=== PATIENT | female | born 1950 | race Caucasian/White ===

== ENCOUNTER → 2021-05-18 | Outpatient (CLI) | payer OTHER | END | disposition home or self-care (01) | LOC: LAB 17:56 → LAB SHORT 17:56 | DX: L08.9 Local infection of the skin and subcutaneous tissue, unspecified (principal) | CPT/HCPCS: 87070; 87205 ==

== ENCOUNTER → 2021-12-13 | Outpatient (CLI) | payer MEDICARE ==
[2021-12-13 14:59] LABS: Source, Urine Clean Catch
[2021-12-13 15:49] LABS: Bilirubin, Urine Neg (Neg); Blood, Urine 1+ (Neg); Glucose Qualitative, Urine Neg (Neg); Ketones, Urine Neg (Neg); Leukocyte Esterase, Urine 3+ (Neg); Nitrite, Urine Neg (Neg); Protein, Urine Neg (Neg); Specific Gravity, Urine 1.005 (1.003-1.022); Urobilinogen, Urine NORM (Normal)
[2021-12-13 16:10] LABS: Appearance, Urine Hazy (Clear); Color, Urine Yellow (P-Yellow)
[2021-12-13 16:11] LABS: White Blood Cells, Urine 25-50 /hpf (0-5)
[2021-12-13 16:13] LABS: Red Blood Cells, Urine 0-2 /hpf (0-2)
[2021-12-13 16:14] LABS: Bacteria Many /hpf; Squamous Epithelial Cells Few /hpf (Few)
== END ==
LOC: LAB SHORT 14:53
PROVIDERS: Student in an Organized Health Care Education/Training Program
DX: N17.9 Acute kidney failure, unspecified (principal)
CPT/HCPCS: 81001

== ENCOUNTER 2022-09-13 05:52 | Inpatient (IN) | payer MEDICARE ==
[~2022-09-13] VITALS: Ht 170.2 cm; Wt 113.2 kg
[2022-09-13 06:24] LABS: BASOPHILS ABSOLUTE AUTO 0.05 K/mm3 (0.00-0.23); BASOPHILS PERCENT AUTO 1 % (0-2); EOSINOPHILS ABSOLUTE AUTO 0.07 K/mm3 (0.00-0.68); EOSINOPHILS PERCENT AUTO 1 % (0-6); Hematocrit 33.6 % (33.0-51.0); Hemoglobin 11.7 g/dL (11.5-16.0); IMMATURE GRAN ABSOLUTE AUTO 0.02 K/mm3 (0.00-0.10); IMMATURE GRAN PERCENT AUTO 0 % (0-1); LYMPHOCYTES ABSOLUTE AUTO 1.17 K/mm3 (0.84-5.20); LYMPHOCYTES PERCENT AUTO 20 % (21-46); MONOCYTES ABSOLUTE AUTO 0.44 K/mm3 (0.16-1.47); MONOCYTES PERCENT AUTO 8 % (4-13); Mean Corpuscular HGB 33.1 pg (26.0-34.0); Mean Corpuscular HGB Conc 34.8 g/dL (31.5-36.5); Mean Corpuscular Volume 95 fL (80-100); Mean Platelet Volume 10.6 fL (9.1-12.4); NEUTROPHILS ABSOLUTE AUTO 4.01 K/mm3 (1.96-9.15); NEUTROPHILS PERCENT AUTO 70 % (41-73); Platelet Count 142 K/mm3 (150-400); RDW Coefficient Variation 13.2 % (11.7-14.2); RDW Standard Deviation 45.6 fL (35.1-46.3); Red Blood Cell Count 3.54 M/mm3 (3.80-5.20); White Blood Cell Count 5.76 K/mm3 (4.00-11.30)
[2022-09-13 06:32] LABS: Albumin, Blood 3.7 g/dL (3.4-5.0); Albumin/Globulin Ratio 1.1 (0.8-1.8); Bilirubin, Total 0.8 mg/dL (0.1-1.0); Bun/Creatinine Ratio 13.6 (12.0-20.0); Calcium, Blood 8.8 mg/dL (8.5-10.1); Creatinine, Blood 0.96 mg/dL (0.40-1.00); Globulin, Blood 3.3 g/dL (2.2-4.0); Potassium, Blood 3.8 mmol/L (3.5-5.5)
[2022-09-13 07:34] LABS: Influenza B, PCR NEGATIVE (NEGATIVE); Resp Syncytial Virus, PCR NEGATIVE (NEGATIVE); SARS-Cov-2 (COVID-19) PCR, MMC NEGATIVE (NEGATIVE)
[2022-09-13 07:41] LABS: Influenza A, PCR POSITIVE (NEGATIVE)
[2022-09-13 08:57] LABS: PCO2 Arterial 37.8 mmHg (35-45); PO2 Arterial 75.5 mmHg (80-100); pH Blood Arterial 7.44 (7.35-7.45)
[2022-09-13] MEDS ORDERED: NEURONTIN300 MG PO ×2 (09:25)
[2022-09-13] MEDS ORDERED: METF500 PO (09:25)
[2022-09-13] MEDS ORDERED: ROPI.25 PO (09:26)
[2022-09-13] MEDS ORDERED: AMIT75 PO (09:26)
[2022-09-13] MEDS ORDERED: TIZA4 PO (09:26)
[2022-09-13] MEDS ORDERED: FUROSEMIDE20 MG PO (09:26)
[2022-09-13] MEDS ORDERED: LOSA50 PO (09:27)
[2022-09-13] MEDS ORDERED: KLOR-CON M1010 MEQ PO (09:27)
[2022-09-13] MEDS ORDERED: ATOR10 PO (09:28)
[2022-09-13] MEDS ORDERED: INCRUSE ELPT62.5MCG (09:28)
[2022-09-13] MEDS ORDERED: Cranberry400 MG PO (09:30)
[2022-09-13] MEDS ORDERED: INSULANI SC (09:30)
[2022-09-13] MEDS ORDERED: IRON18 MG PO (09:30)
[2022-09-13] MEDS ORDERED: Aspir 8181 MG PO (09:31)
[2022-09-13] MEDS ORDERED: Vitamin B Comple1 EA PO (09:31)
[2022-09-13] MEDS ORDERED: C COMPLEX1000 M1 PO (09:31)
[2022-09-13] MEDS ORDERED: CAL MAG PO (09:32)
[2022-09-13] MEDS ORDERED: EUTHYROX50 MC1 PO (14:08)
--- NOTE | 2022-09-13 17:58 | NUR ---
PCU ARRIVAL / END OF SHIFT NOTE PT BROUGHT TO U-04 BY DYLAN FROM ER @ APPROX 1400. PT A&O X4. PT REPORTING FEELING "DIZZY" UPON SITTING UP, BUT SYMPTOMS SUBSIDED. PT THEN ABLE TO STAND & AMBULATE FROM [facility] TO PCU BED W/ 1 PERSON SBA. PT ON 1L NC UPON ARRIVAL. VSS. MONITOR SHOWING ST, HR 100-110s. PT THEN W/ PRODUCTIVE COUGH, PRODUCING THICK PRICE SPUTUM. SPO2 DECREASE TO LOW 80s. NC INCREASED UP TO 5L NC. PT ANXIOUS, STATING "I CAN'T BREATHE. I CAN'T DO THIS. SOMEONE JUST SHOOT ME." MONITOR SHOWING ST, HR UP TO 130. RT TO RM FOR APPLICATION OF AIRVO & BREATHING TX. PT NOW ON AIRVO @ 40L, 40% FIO2. FAN PLACED ON PT D/T PT REPORT OF "BURNING UP" THOUGH ORAL TEMP WNL. MD CISNEROS NOTIFIED W/ NEW ORDERS FOR PRN COUGH MEDICINE & XANAX, SEE ORDERS. MEDS GIVEN, SEE EMAR. PT NOW CALM. COUGHING SUBSIDED. HR BACK TO 100-110s. PT CBG 414 WITHOUT EATING. MD CISNEROS NOTIFIED W/ PT GIVEN INSULIN PER EMAR. REPEAT CBG CHECK 396, MD CISNEROS NOTIFIED W/ ORDER TO CONTINUE W/ MEDIUM SLIDING SCALE COVERAGE, NO NEW ORDER AT THIS TIME.
[2022-09-14 04:32] LABS: Hemoglobin 10.9 g/dL (11.5-16.0); Mean Corpuscular HGB 32.8 pg (26.0-34.0); Mean Corpuscular HGB Conc 34.1 g/dL (31.5-36.5); Mean Corpuscular Volume 96 fL (80-100); Mean Platelet Volume 10.8 fL (9.1-12.4); Platelet Count 128 K/mm3 (150-400); RDW Coefficient Variation 13.5 % (11.7-14.2); RDW Standard Deviation 47.5 fL (35.1-46.3); Red Blood Cell Count 3.32 M/mm3 (3.80-5.20); White Blood Cell Count 6.84 K/mm3 (4.00-11.30)
[2022-09-14 05:50] LABS: Bun/Creatinine Ratio 20.7 (12.0-20.0); Calcium, Blood 8.4 mg/dL (8.5-10.1); Creatinine, Blood 0.87 mg/dL (0.40-1.00); Potassium, Blood 4.2 mmol/L (3.5-5.5)
--- NOTE | 2022-09-14 18:37 | NUR ---
END OF SHIFT NOTE PT A&O X4. VSS. MONITOR SHOWING SR-ST, HR 90s-110s. SPO2 > 92% ON AIRVO: 40L, 40% FIO2. PT DESATTING TO LOW 80s WHEN COUGHING, REQUIRING TEMPORARY INCREASE IN FIO2 UNTIL RECOVERED. PT W/ THICK PRICE SPUTUM PRODUCTION. PT SBA TO BSC.
--- NOTE | 2022-09-15 04:18 | NUR ---
SHIFT SUMMARY PT A&Ox4, CALLS AND COMMUNICATES NEEDS APPROPRIATELY. BP STABLE, ST 100-110's, DENIES CP/PRESSURE. SpO2> 92% 40L/35% FiO2, DENIES SOB. PT SBA TO BSC FOR VOIDING, CONTINENT OF URINE AND BOWEL, PT DID NOT HAVE BM THIS SHIFT. PT ABLE TO REST MORE COMFORTABLY AND HAD LESS COUGHING FITS THIS SHIFT. NO ACUTE EVENTS, WILL REPORT TO ONCOMING RN.
[2022-09-15 04:55] LABS: PCO2 Arterial 44.7 mmHg (35-45); PO2 Arterial 88.9 mmHg (80-100); pH Blood Arterial 7.35 (7.35-7.45)
[2022-09-15 05:52] LABS: Albumin, Blood 3.3 g/dL (3.4-5.0); Anion Gap 8 mmol/L (6-16); Blood Urea Nitrogen 24 mg/dL (8-24); Bun/Creatinine Ratio 26.8 (12.0-20.0); CO2, Blood 24 mmol/L (21-32); Calcium, Blood 8.5 mg/dL (8.5-10.1); Chloride, Blood 98 mmol/L (98-108); Glomerular Filtration Rate 69 (60-); Glucose, Blood 371 mg/dL (70-99); Phosphorus, Blood 2.3 mg/dL (2.5-4.9); Potassium, Blood 4.8 mmol/L (3.5-5.5); Sodium, Blood 130 mmol/L (136-145)
[2022-09-15 12:13] LABS: Glucose, Blood 572 mg/dL (70-99)
--- NOTE | 2022-09-15 18:24 | NUR ---
SHIFT SUMMARY PT A/OX 4 AND COOPERATIVE OF CARE. PT SATS DROP TO THE HIGH 70-80'S WITH EXERTION BUT RETURN QUICKLY TO 90'S ON 2L NC. PT REPORTS SOB ONLY WITH EXERTION, NO SOB WHEN AT REST. OTHER VSS THROUGHOUT SHIFT. PT WAS UP TO RECLINER AND AMBULATED TO TOILET MULTIPLE TIME DURING SHIFT, TOLERATED FAIR, SBA. NO REPORT OF CHEST PAIN/PRESSURE THROUGHOUT SHIFT. PT ANXIOUS OF GETTING HOME FOR [facility]. PT EDUCATED ON THE IMPORTANCE OF GETTING HOME WHEN SHE SAFE AND STABLE, PT AGREES.
--- NOTE | 2022-09-16 04:41 | NUR ---
SHIFT SUMMARY PT A&Ox4, CALLS AND COMMUNICATES NEEDS APPROPRIATELY. VSS, BP STABLE, PT NOT ON TELE. SpO2> 92% 2L VIA NC, REPORTS SOB WITH ACTIVITY. DENIES CP/PRESSURE. PT REMAINED MEDICAL, NO TELE STATUS. PT SBA TO BATHROOM WITH NO ASSISTIVE DEVISES, STEADY GAIT. CONTINENT OF URINE AND BOWEL. PT STILL EXPERIENCING FREQUENT, NONPRODUCTIVE COUGH. NO ACUTE EVENTS THIS SHIFT. WILL REPORT TO ONCOMING RN.
[2022-09-16 13:02] LABS: Free Thyroxine 1.53 ng/dL (0.70-1.60); Percent Saturation 5.7 % (15.0-50.0); Thyroid Stimulating Hormone 0.369 uIU/mL (0.360-4.800)
--- NOTE | 2022-09-16 18:04 | NUR ---
SHIFT SUMMARY PT A/OX4 AND COOPERATIVE OF CARE. PT O2 SATS MAINTIANED IN 90'S ON 2-4L NC, ATTEMPETED TO TITRATE TO 1L, PT SATS STAYED 89-90%. RETURNED O2 TO 2-4 L NC. PT TEMP WAS UP TO 100.4, TYLENOL GIVEN PER EMAR, TEMP WNL. OTHER VSS THROUGHOUT SHIFT. NO REPORT OF CHEST PAIN/PRESSURE THROUGHOUT SHIFT. NO REPORT OF SOB/DYSPNEA THROUGHOUT SHIFT. PT UP TO TOILET FOR BM TODAY, TOLERATED WELL, SBA. BLOOD SUGARS IN THE 200' FOR MOST OF SHIFT, EVENING BLOOD SUGAR 407, TREATED PER EMAR SLIDING SCALE. MESSAGE LEFT FOR DR FOR RECENT BLOOD SUGAR.
[2022-09-16 21:18] LABS: Glucose, Blood 566 mg/dL (70-99)
--- NOTE | 2022-09-16 22:04 | NUR ---
UPDATE PT'S CBG THIS PM CAME BACK TO >500 WHEN TAKEN WITH GLUCOMETER. STAT CBG VIA BLOOD DRAW WAS PERFORMED WITH RESULTS INDICATING CBG WAS 566. DR. CAMILO WELL METAL WINDOW FRAME MAKER NAMITA WERE NOTIFIED OF CRITICAL LAB RESULT. MD ORDERED AN ADDITIONAL DOSE OF LISPRO WELL THE ADMIN. OF HER SCEDULED DOSES OF INSULIN. PT WAS MEDICATED ORDERED PER EMAR. PT STATED SHE WAS NOT WEAK, DIZZY, OR HAD INCREASED NEED OF THIRST/HUNGER/NEED TO VOID. NO CHANGE IN MENTATION NOTED AT THIS TIME. PT GIVEN WATER AND NO NEW ORDERS AT THIS TIME.
--- NOTE | 2022-09-17 04:14 | NUR ---
PT PCU TRANSFER TO 336. A&OX 4. VSS. STANDBY ASSIST TO BATHROOM. ON 2L NC SATTING ABOVE 90%. C/O HEADACHE AND FREQUENT COUGHING. GIVEN PRN TYLENOL AND TESSALON PERLES. PLEASANT AND COOPERATIVE WITH CARE.
[2022-09-17 05:34] LABS: BASOPHILS ABSOLUTE AUTO 0.01 K/mm3 (0.00-0.23); BASOPHILS PERCENT AUTO 0 % (0-2); EOSINOPHILS ABSOLUTE AUTO 0.08 K/mm3 (0.00-0.68); EOSINOPHILS PERCENT AUTO 1 % (0-6); Hematocrit 30.5 % (33.0-51.0); Hemoglobin 10.6 g/dL (11.5-16.0); IMMATURE GRAN ABSOLUTE AUTO 0.06 K/mm3 (0.00-0.10); IMMATURE GRAN PERCENT AUTO 1 % (0-1); LYMPHOCYTES ABSOLUTE AUTO 1.28 K/mm3 (0.84-5.20); LYMPHOCYTES PERCENT AUTO 16 % (21-46); MONOCYTES ABSOLUTE AUTO 0.55 K/mm3 (0.16-1.47); MONOCYTES PERCENT AUTO 7 % (4-13); Mean Corpuscular HGB 32.4 pg (26.0-34.0); Mean Corpuscular HGB Conc 34.8 g/dL (31.5-36.5); Mean Corpuscular Volume 93 fL (80-100); Mean Platelet Volume 10.4 fL (9.1-12.4); NEUTROPHILS ABSOLUTE AUTO 6.23 K/mm3 (1.96-9.15); NEUTROPHILS PERCENT AUTO 76 % (41-73); Platelet Count 125 K/mm3 (150-400); RDW Coefficient Variation 13.2 % (11.7-14.2); RDW Standard Deviation 45.5 fL (35.1-46.3); Red Blood Cell Count 3.27 M/mm3 (3.80-5.20); White Blood Cell Count 8.21 K/mm3 (4.00-11.30)
[2022-09-17 06:14] LABS: Albumin, Blood 2.9 g/dL (3.4-5.0); Albumin/Globulin Ratio 0.8 (0.8-1.8); Bilirubin, Total 1.2 mg/dL (0.1-1.0); Calcium, Blood 8.7 mg/dL (8.5-10.1); Creatinine, Blood 0.96 mg/dL (0.40-1.00); Globulin, Blood 3.7 g/dL (2.2-4.0); Potassium, Blood 3.5 mmol/L (3.5-5.5); Total Protein, Blood 6.6 g/dL (6.4-8.2)
--- NOTE | 2022-09-17 12:17 | NUR ---
DR. BAHENA, WHEN ROUNDING, DISCUSSED WITH NURSE PLANS FOR DISCHARGE. PT IS VERY STRONGLY DESIRING TO GO HOME. DR. BAHENA WITH ORDERS FOR A HOME O2 EVAL, PT WILL NEED OXYGEN AT HOME SHE CURRENTLY REQUIRES 3LPM VIA NC TO MAINTAIN HER SATS. BASELINE IS ROOM AIR. SHE WILL NEED OUT PATIENT IRON TRANSFUSIONS.
[2022-09-17] MEDS ORDERED: HUMALOG KW100 UNIT/1 SC (15:26)
[2022-09-17] MEDS ORDERED: Tessalon200 MG PO (15:38)
--- NOTE | 2022-09-17 17:14 | NUR ---
LATE ENTRY SHIFT SUMMARY PT HAD DISCHARGE DISCUSSION WITH DR. BAHENA, DISCUSSED STOPPING TAKING METFORMIN, INCREASING LANTUS DOSING, AND CONTINUING WITH HOME NEB AND OXYGEN TREATMENTS. HOME O2 EVAL PERFORMED BY RT, INDICATING REQUIREMENT OF 2-3LPM VIA NC TO MAINTAIN OXYGEN SATS. THIS RN FAXED MEDICATION RX'S NEEDED TO [facility]. 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 PREPARING FOR DISCHARGE.
--- NOTE | 2022-09-17 17:16 | NUR ---
DISCHARGE NOTE PT'S IV WAS REMOVED AT 1530. PT WAS CONNECTED TO OXYGEN THAT WAS DELIVERED BY [facility]. RN REVIEWED DISCHARGE TEACHING AND MEDICATIONS WITH PT. PT'S STATED HE HAD PICKED UP THE MEDICATIONS FROM [facility]. GAVE PT DISCHARGE EDUCATION INCLUDING IRON DEFICIENCY AND HIGH SLIDING SCALE. PT WILL CALL [facility] TO SCHEDULE OUTPT IRON TRANSFUSIONS. PT WAS WHEELED, VIA WHEELCHAIR PROPELLED BY MUSEUM REGISTRAR, WITH ALL BELONGINGS TO PRIVATE VEHICLE DRIVEN BY HER .
== END 2022-09-17 16:24 | disposition home or self-care (01) | DRG 193 ==
LOC: ER 05:52 → ERHOLD 08:13 → ER 08:13 → MEDS 08:13 → PCU 08:13 → MEDS 09-17 02:10
PROVIDERS: Emergency Medicine; Internal Medicine; ADMIT Internal Medicine
DX: J10.1 Influenza due to other identified influenza virus with other respiratory manifestations (principal); J96.01 Acute respiratory failure with hypoxia; E87.20 Acidosis, unspecified; Z68.41 Body mass index [BMI] 40.0-44.9, adult; E87.1 Hypo-osmolality and hyponatremia; J44.1 Chronic obstructive pulmonary disease with (acute) exacerbation; Z20.822 Contact with and (suspected) exposure to COVID-19; E03.9 Hypothyroidism, unspecified; J40 Bronchitis, not specified as acute or chronic; E66.9 Obesity, unspecified; G25.81 Restless legs syndrome; E11.40 Type 2 diabetes mellitus with diabetic neuropathy, unspecified; E78.5 Hyperlipidemia, unspecified; G47.00 Insomnia, unspecified; G89.29 Other chronic pain; E86.0 Dehydration; E11.65 Type 2 diabetes mellitus with hyperglycemia; T38.0X5A Adverse effect of glucocorticoids and synthetic analogues, initial encounter; F41.9 Anxiety disorder, unspecified; D50.9 Iron deficiency anemia, unspecified; M54.9 Dorsalgia, unspecified; Z90.49 Acquired absence of other specified parts of digestive tract; Z90.710 Acquired absence of both cervix and uterus; Z90.722 Acquired absence of ovaries, bilateral; Z79.4 Long term (current) use of insulin; Z79.82 Long term (current) use of aspirin; Z79.899 Other long term (current) drug therapy
CPT/HCPCS: 0241U; 36415; 36600; 71045; 80048; 80053; 80069; 82728; 82803; 82947; 83540; 83550; 83605; 83880; 84145; 84439; 84443; 84484; 85025; 85027; 87040; 93005; 93010; 94640; 94664; 94760; 94761; 94762; 96365; 96375; 99285-25; A9270; J1650; J1815; J2405; J2916; J2920; J2930; J3475; J7030; J7050; J7512

== ENCOUNTER 2022-09-19 11:49 | Day surgery (SDC) | payer MEDICARE ==
[~2022-09-19 11:49] MED LIST: AMIT75 PO; ATOR10 PO; Aspir 8181 MG PO; C COMPLEX1000 M1 PO; CAL MAG PO; Cranberry400 MG PO; EUTHYROX50 MC1 PO; FUROSEMIDE20 MG PO; HUMALOG KW100 UNIT/1 SC; INCRUSE ELPT62.5MCG; INSULANI SC; IRON18 MG PO; KLOR-CON M1010 MEQ PO; LOSA50 PO; METF500 PO; NEURONTIN300 MG PO; ROPI.25 PO; TIZA4 PO; Tessalon200 MG PO; Vitamin B Comple1 EA PO
== END 2022-09-19 15:22 | disposition home or self-care (01) ==
LOC: ATC 11:49
DX: D50.9 Iron deficiency anemia, unspecified (principal); E11.42 Type 2 diabetes mellitus with diabetic polyneuropathy; J44.9 Chronic obstructive pulmonary disease, unspecified; E78.5 Hyperlipidemia, unspecified; I10 Essential (primary) hypertension; J96.01 Acute respiratory failure with hypoxia
CPT/HCPCS: J2916

== ENCOUNTER 2022-09-21 00:51 | Day surgery (SDC) | payer MEDICARE | END 2022-09-21 15:20 | disposition home or self-care (01) | LOC: ATC 00:51 | DX: D50.0 Iron deficiency anemia secondary to blood loss (chronic) (principal); I10 Essential (primary) hypertension; E11.42 Type 2 diabetes mellitus with diabetic polyneuropathy; E78.5 Hyperlipidemia, unspecified; J96.01 Acute respiratory failure with hypoxia; J44.1 Chronic obstructive pulmonary disease with (acute) exacerbation | CPT/HCPCS: 96365; J2916 ==

== ENCOUNTER 2022-09-22 01:18 | Day surgery (SDC) | payer MEDICARE | END 2022-09-22 14:56 | disposition home or self-care (01) | LOC: ATC 01:18 | DX: D50.9 Iron deficiency anemia, unspecified (principal); E11.9 Type 2 diabetes mellitus without complications; I10 Essential (primary) hypertension; J44.9 Chronic obstructive pulmonary disease, unspecified | CPT/HCPCS: 96365; J2916 ==

== ENCOUNTER 2022-09-23 00:11 | Day surgery (SDC) | payer MEDICARE | END 2022-09-23 14:56 | disposition home or self-care (01) | LOC: ATC 00:11 | DX: D50.9 Iron deficiency anemia, unspecified (principal); J44.9 Chronic obstructive pulmonary disease, unspecified; E11.42 Type 2 diabetes mellitus with diabetic polyneuropathy; I10 Essential (primary) hypertension | CPT/HCPCS: J2916 ==

== ENCOUNTER 2022-12-13 15:40 | Emergency (ER) | payer OTHER ==
[~2022-12-13] VITALS: Ht 170.2 cm; Wt 110.7 kg
[2022-12-13 16:04] LABS: BASOPHILS ABSOLUTE AUTO 0.02 K/mm3 (0.00-0.23); BASOPHILS PERCENT AUTO 0 % (0-2); EOSINOPHILS PERCENT AUTO 0 % (0-6); Hematocrit 31.5 % (33.0-51.0); Hemoglobin 10.6 g/dL (11.5-16.0); IMMATURE GRAN ABSOLUTE AUTO 0.06 K/mm3 (0.00-0.10); IMMATURE GRAN PERCENT AUTO 1 % (0-1); LYMPHOCYTES ABSOLUTE AUTO 0.27 K/mm3 (0.84-5.20); LYMPHOCYTES PERCENT AUTO 3 % (21-46); MONOCYTES ABSOLUTE AUTO 0.38 K/mm3 (0.16-1.47); MONOCYTES PERCENT AUTO 5 % (4-13); Mean Corpuscular HGB 31.5 pg (26.0-34.0); Mean Corpuscular HGB Conc 33.7 g/dL (31.5-36.5); Mean Corpuscular Volume 94 fL (80-100); Mean Platelet Volume 11.7 fL (9.1-12.4); NEUTROPHILS ABSOLUTE AUTO 7.34 K/mm3 (1.96-9.15); NEUTROPHILS PERCENT AUTO 91 % (41-73); Platelet Count 135 K/mm3 (150-400); RDW Coefficient Variation 13.5 % (11.7-14.2); RDW Standard Deviation 46.5 fL (35.1-46.3); Red Blood Cell Count 3.37 M/mm3 (3.80-5.20); White Blood Cell Count 8.07 K/mm3 (4.00-11.30)
[2022-12-13 16:17] LABS: Albumin, Blood 3.3 g/dL (3.4-5.0); Albumin/Globulin Ratio 0.7 (0.8-1.8); Bun/Creatinine Ratio 26.9 (12.0-20.0); Calcium, Blood 9.2 mg/dL (8.5-10.1); Creatinine, Blood 1.34 mg/dL (0.40-1.00); Globulin, Blood 4.5 g/dL (2.2-4.0); Potassium, Blood 4.5 mmol/L (3.5-5.5); Total Protein, Blood 7.8 g/dL (6.4-8.2)
[2022-12-13 16:54] LABS: Source, Urine Clean Catch
[2022-12-13 17:00] LABS: Appearance, Urine Clear (Clear); Bilirubin, Urine Neg (Neg); Blood, Urine Neg (Neg); Color, Urine Yellow (P-Yellow); Glucose Qualitative, Urine 4+ (Neg); Ketones, Urine Neg (Neg); Leukocyte Esterase, Urine Neg (Neg); Nitrite, Urine Neg (Neg); Protein, Urine Neg (Neg); Specific Gravity, Urine 1.015 (1.003-1.022); Urobilinogen, Urine NORM (Normal)
[2022-12-13 17:04] LABS: Base Excess Venous -3.4 mmol/L; Bicarbonate Venous 21.9 mmol/L (24.0-30.0); pH Blood Venous 7.38 (7.34-7.37)
== END 2022-12-13 20:54 | disposition home or self-care (01) ==
LOC: ER 15:40
PROVIDERS: Emergency Medicine
DX: E11.65 Type 2 diabetes mellitus with hyperglycemia (principal); J44.9 Chronic obstructive pulmonary disease, unspecified; I10 Essential (primary) hypertension; E78.5 Hyperlipidemia, unspecified; Z79.890 Hormone replacement therapy; Z79.899 Other long term (current) drug therapy; Z79.4 Long term (current) use of insulin
CPT/HCPCS: 36415; 71045; 80053; 81003; 82803; 82947; 85025; 96360; 99284-25; J1815; J7030

== ENCOUNTER 2023-02-14 09:36 | Day surgery (SDC) | payer OTHER ==
[~2023-02-14 09:36] MED LIST changes: +ALBU90OI INH; +TRELEGY ELLIPT1 EACH BC
[2023-02-14 10:05] VITALS: BP 136/70
--- NOTE | 2023-02-14 10:15 | NUR ---
PT REPORTS COLON RESULTS IS GREENISH BUT NO SOLIDS. 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 PT GIVEN A TAP WATER ENEMA WITH PT ABOUT TO RETAIN 400ML FLUID. HELD FOR APPROX 5 MINUTES, RESULTS OF LIGHT GREENISH CLEAR WITH FLECKS. DR. QUILES NOTIFIED. PLAN TO PROCEED WITH PROCEDURE.
[2023-02-14] MEDS ORDERED: TIZA4 PO (10:22)
--- NOTE | 2023-02-14 10:50 | NUR ---
02/14/23 Cheryl Demarco HISTORY, CHART, MEDICATIONS AND ALLERGIES REVIEWED BEFORE START OF PROCEDURE. PATIENT CONFIRMS NPO STATUS AND AGREES WITH SCHEDULED PROCEDURE. 3-LEAD EKG REVIEWED WITH PHYSICIAN PRIOR TO START OF PROCEDURE. MONITOR INTACT WITH CONTINUOUS PULSE OXIMETRY,CAPNOGRAPHY, 3-LEAD EKG, INTERMITTENT BP. SUPPLEMENTAL O2 TO BE TITRATED THROUGHOUT PROCEDURE TO MAINTAIN O2 SATURATION ABOVE 90%. PATIENT DETERMINED TO BE ASA APPROPRIATE FOR PROPOFOL SEDATION PRIOR TO START OF PROCEDURE BY DR. QUILES.
[2023-02-14 11:04] VITALS: BP 109/61
--- NOTE | 2023-02-14 11:06 | NUR ---
REPORT RECEIVED FROM DANIEL RUFF RN. VSS. PT ABLE TO REPOSITION SELF IN BED. PT REQUESTING PO FLUIDS AND TOLERATING THEM WELL. PT DENIES PAIN OR DISCOMFORT.
[2023-02-14 11:15] VITALS: BP 127/70
--- NOTE | 2023-02-14 11:26 | NUR ---
Patient up to Ambulate independently. Gait steady. VSS. Discharge instructions reviewed with patient. Patient verbalizes understanding. Copy given to patient to take home. Patient States Post-Procedure ride home has been arranged. Discharged via wheelchair to private car for ride home. PT BELONGINGS RETURNED TO PT.
== END 2023-02-14 22:39 | disposition home or self-care (01) ==
LOC: ORSCMMR 09:36 → ORD 10:30 → ORSCMMR 22:39
PROVIDERS: Internal Medicine Gastroenterology
PROC: 0DBN8ZX Excision of Sigmoid Colon, Via Natural or Artificial Opening Endoscopic, Diagnostic (ICD-10-PCS; principal; 2023-02-14 10:30)
DX: K62.5 Hemorrhage of anus and rectum (principal); D64.9 Anemia, unspecified; D12.5 Benign neoplasm of sigmoid colon; J44.9 Chronic obstructive pulmonary disease, unspecified; E11.40 Type 2 diabetes mellitus with diabetic neuropathy, unspecified; N28.9 Disorder of kidney and ureter, unspecified; I10 Essential (primary) hypertension; E78.00 Pure hypercholesterolemia, unspecified; Z87.891 Personal history of nicotine dependence; Z79.4 Long term (current) use of insulin; Z79.84 Long term (current) use of oral hypoglycemic drugs; Z79.899 Other long term (current) drug therapy
CPT/HCPCS: 82947; 88305; J2405; J2704; J7120

== ENCOUNTER 2025-01-25 13:15 | Inpatient (IN) | payer OTHER ==
[~2025-01-25] VITALS: Ht 170.2 cm; Wt 120.4 kg
[2025-01-25 13:38] LABS: Calcium, Ionized (POC) 1.17 mmol/L (1.10-1.46); Chloride (POC) 100 mmol/L (98-108); Creatinine (POC) 1.2 mg/dL (0.6-1.0); Glucose (ISTAT POC) 162 mg/dL (70-99); Hemoglobin (POC) 11.2 g/dL (12.0-16.0); Potassium (POC) 4.7 mmol/L (3.5-5.5); Sodium (POC) 128 mmol/L (135-148); Total CO2 (POC) 20 mmol/L (21-32)
[2025-01-25 13:42] LABS: BASOPHILS ABSOLUTE AUTO 0.06 K/mm3 (0.00-0.23); BASOPHILS PERCENT AUTO 1 % (0-2); EOSINOPHILS ABSOLUTE AUTO 0.22 K/mm3 (0.00-0.68); EOSINOPHILS PERCENT AUTO 3 % (0-6); Hematocrit 33.3 % (33.0-51.0); Hemoglobin 11.3 g/dL (11.5-16.0); IMMATURE GRAN ABSOLUTE AUTO 0.02 K/mm3 (0.00-0.10); IMMATURE GRAN PERCENT AUTO 0 % (0-1); LYMPHOCYTES PERCENT AUTO 26 % (21-46); MONOCYTES ABSOLUTE AUTO 0.57 K/mm3 (0.16-1.47); MONOCYTES PERCENT AUTO 8 % (4-13); Mean Corpuscular HGB 28.9 pg (26.0-34.0); Mean Corpuscular HGB Conc 33.9 g/dL (31.5-36.5); Mean Corpuscular Volume 85 fL (80-100); Mean Platelet Volume 11.3 fL (9.1-12.4); NEUTROPHILS ABSOLUTE AUTO 4.36 K/mm3 (1.96-9.15); NEUTROPHILS PERCENT AUTO 62 % (41-73); Platelet Count 188 K/mm3 (150-400); RDW Coefficient Variation 13.2 % (11.7-14.2); RDW Standard Deviation 41.5 fL (35.1-46.3); Red Blood Cell Count 3.91 M/mm3 (3.80-5.20); White Blood Cell Count 7.03 K/mm3 (4.00-11.30)
[2025-01-25 14:01] LABS: Albumin, Blood 3.4 g/dL (3.4-5.0); Bilirubin, Total 0.3 mg/dL (0.1-1.0); Bun/Creatinine Ratio 21.5 (12.0-20.0); Calcium, Blood 8.9 mg/dL (8.5-10.1); Creatinine, Blood 0.93 mg/dL (0.40-1.00); Globulin, Blood 3.3 g/dL (2.2-4.0); Magnesium, Blood 1.8 mg/dL (1.6-2.4); Potassium, Blood 4.6 mmol/L (3.5-5.5); Total Protein, Blood 6.7 g/dL (6.4-8.2)
[2025-01-25] MEDS ORDERED: OZEMPIC0.25 MG/02 SQ (14:15)
[2025-01-25] MEDS ORDERED: KLOR-CON 1010 ME9 PO (14:16)
[2025-01-25] MEDS ORDERED: METO25ER PO (14:17)
[2025-01-25] MEDS ORDERED: PREG150 PO ×2 (14:19→16:53)
[2025-01-25] MEDS ORDERED: HUMULIN R100 UNIT/1 SC (14:20)
[2025-01-25] MEDS ORDERED: METFORMIN HCL500 M2 PO (14:22)
[2025-01-25] MEDS ORDERED: TRELEGY ELLIPT1 EACH IH (14:23)
[2025-01-25] MEDS ORDERED: Amlodipine Bes2.5 MG PO (14:24)
[2025-01-25] MEDS ORDERED: ZANAFLEX413 PO (14:24)
[2025-01-25] MEDS ORDERED: EUTHYROX50 MC1 PO (14:26)
[2025-01-25] MEDS ORDERED: Diphth,Pertuss(Acell),Tet Vac 0.5 ML VIAL IM ONE (14:35)
[2025-01-25] MEDS ORDERED: HydrALAZINE HCl 20 MG / ML 1ML Vial IV PRN (15:35)
[2025-01-25] MEDS ORDERED: Acetaminophen 325 MG TABLET PO PRN (15:35)
[2025-01-25] MEDS ORDERED: Prochlorperazine Edisylate 10 mg Vial IV PRN (15:35)
[2025-01-25] MEDS ORDERED: Morphine Sulfate 4 MG/1 ML Injection IV PRN (15:35)
[2025-01-25] MEDS ORDERED: Tiotropium Bromide 2.5 MCG/ACT MIST INHAL (10 ACT/4 GM) INH SCH (16:00)
[2025-01-25] MEDS ORDERED: Mometasone/Formoterol MDI 100/5 mcg 13 GM INH SCH (16:00)
[2025-01-25] MEDS ORDERED: Albuterol HFA200 ACT/6.7 GM INH INH PRN (16:00)
[2025-01-25] MEDS ORDERED: Atropine Sulfate 0.1 MG/ML 10ML SYR XX ONE (16:28)
[2025-01-25 16:30] VITALS: BP 134/82
[2025-01-25] MEDS ORDERED: ROPI1 PO (16:51)
[2025-01-25] MEDS ORDERED: Ropinirole HCl1 MG PO (16:52)
[2025-01-25] MEDS ORDERED: PREG300 PO (16:53)
[2025-01-25 17:50] VITALS: BP 129/78
[2025-01-25] MEDS ORDERED: Insulin Regular 100 UNIT/ML 10ML Vial SC SCH (18:00)
[2025-01-25 18:02] VITALS: BP 131/105
--- NOTE | 2025-01-25 18:05 | NUR ---
ARRIVAL TO ICU/END OF SHIFT SUMMARY PT ARRIVED TO ICU 11 AT 1617 VIA ED BED AND TRANSFERED OVER TO ICU BED VIA SLIDE SHEET. SHE IS BEING ADMITTED FOR 3RD DEGREE HB. SHE IS A/O X4 AND ABLE TO MAKE HER NEEDS KNOWN; C/O HEADACHE, PRN TYLENOL GIVEN; C/O FEELING "CLOUDY". SPO2 >95% ON RA. AFEBRILE. HR 28-31, SBP 130'S; PT C/O DIZZINESS ALSO; BED BOUND AT THIS TIME. NO C/O CHEST PAIN OR NAUSEA. PUREWICK IN PLACE. MINIMAL SKIN TEAR/ABRASION TO RT FORARM FROM FALL AT HOME. DR US CALLED AND GAVE A PLAN FOR THE NIGHT; IF BP BECOMES UNSTABLE, A TEMP PACEMAKER IS AN OPTION; IF BP STABLE BUT CONT TO BE RAYMON IN THE AM, PLAN TO HAVE PERM PACEMAKER PLACED TOMORROW. PT AND HER UPDATED AT BEDSIDE. SEE ADMISSION ASSESSMENT FOR FULL ASSESSMENT.
[2025-01-25] MEDS ORDERED: Atorvastatin 10 MG Tab PO SCH (21:00)
[2025-01-25] MEDS ORDERED: Pregabalin 75 MG Cap PO SCH (21:00)
[2025-01-25] MEDS ORDERED: rOPINIRole HCl 1 MG Tab PO SCH (21:00)
[2025-01-25] MEDS ORDERED: TiZANidine HCl 4 MG Tab PO SCH (21:00)
[2025-01-25 22:14] VITALS: BP 128/42
[2025-01-25 22:30] VITALS: BP 125/42
[2025-01-25 23:00] VITALS: BP 133/45
[2025-01-26] VITALS (46 sets, daily range): BP systolic 88–176; BP diastolic 28–93
[2025-01-26 03:41] LABS: BASOPHILS ABSOLUTE AUTO 0.06 K/mm3 (0.00-0.23); BASOPHILS PERCENT AUTO 1 % (0-2); EOSINOPHILS ABSOLUTE AUTO 0.27 K/mm3 (0.00-0.68); EOSINOPHILS PERCENT AUTO 4 % (0-6); Hematocrit 29.2 % (33.0-51.0); Hemoglobin 9.9 g/dL (11.5-16.0); IMMATURE GRAN ABSOLUTE AUTO 0.05 K/mm3 (0.00-0.10); IMMATURE GRAN PERCENT AUTO 1 % (0-1); LYMPHOCYTES PERCENT AUTO 32 % (21-46); MONOCYTES ABSOLUTE AUTO 0.58 K/mm3 (0.16-1.47); MONOCYTES PERCENT AUTO 8 % (4-13); Mean Corpuscular HGB 29.2 pg (26.0-34.0); Mean Corpuscular HGB Conc 33.9 g/dL (31.5-36.5); Mean Corpuscular Volume 86 fL (80-100); Mean Platelet Volume 11.7 fL (9.1-12.4); NEUTROPHILS ABSOLUTE AUTO 4.29 K/mm3 (1.96-9.15); NEUTROPHILS PERCENT AUTO 55 % (41-73); Platelet Count 167 K/mm3 (150-400); RDW Coefficient Variation 13.5 % (11.7-14.2); RDW Standard Deviation 42.2 fL (35.1-46.3); Red Blood Cell Count 3.39 M/mm3 (3.80-5.20); White Blood Cell Count 7.75 K/mm3 (4.00-11.30)
[2025-01-26 04:02] LABS: Albumin, Blood 3.2 g/dL (3.4-5.0); Albumin/Globulin Ratio 1.1 (0.8-1.8); Bilirubin, Total 0.2 mg/dL (0.1-1.0); Bun/Creatinine Ratio 18.8 (12.0-20.0); Calcium, Blood 8.7 mg/dL (8.5-10.1); Creatinine, Blood 1.65 mg/dL (0.40-1.00); Globulin, Blood 2.9 g/dL (2.2-4.0); Total Protein, Blood 6.1 g/dL (6.4-8.2)
[2025-01-26] MEDS ORDERED: Levothyroxine Sodium 0.05 MG Tab PO SCH (06:00)
--- NOTE | 2025-01-26 06:29 | NUR ---
SHIFT SUMMERY PT HAS BEEN ALERT AND ORIENTED X4, RESTLESS AT TIMES. SHE HAS BEEN IN 3RD DEGREE HEART BLOCK IN THE 20-30S OVERNIGHT W/SOFT BP AT TIMES BUT MAPS MOSTLY >65. SHE HAS BEGUN TO HAVE SOME PAUSES APPX 20 MINUTES AGO AND IS NOW SR IN THE 60S. SHE IS DROWSY BUT AROUSABLE. SHE HAS HAD SOME DIZZINESS AND FATIGUE WHICH IS NOT NEW AND MD WAS AWARE. ZOLL IS AT BEDSIDE. PT HAS BEEN AFEBRILE. SHE HAS BEEN ON ROOM AIR W/OXYGEN SAT >92%.
--- NOTE | 2025-01-26 06:51 | NUR ---
PT HAS BECOME MORE SYMPTOMATIC. DR US WAS NOTIFIED. EKG WAS DONE AND PT IS NOW BEING PACED TRANSCUTANEOUSLY AT 50PPM. PT TOLERATING WELL AT THIS TIME.
[2025-01-26] MEDS ORDERED: NS 1,000 ML IV SCH ×2 (07:03→22:35)
[2025-01-26] MEDS ORDERED: NS 250 ML IV ONE ×3 (07:04→22:35)
[2025-01-26] MEDS ORDERED: NS 1,000 ML IV ONE ×4 (07:21→08:27)
[2025-01-26] MEDS ORDERED: Heparin Sodium 1000 Units/ML 10ML MDV ONE ×2 (08:05→08:07)
[2025-01-26] MEDS ORDERED: TRELEGY ELLIPTA INHALER INH SCH (08:05)
[2025-01-26] MEDS ORDERED: NiCARdipine HCL 1,000 MCG/5 ML SYR ONE (08:06)
[2025-01-26] MEDS ORDERED: Nitroglycerin 2 MG/20 ML BTL ONE (08:06)
[2025-01-26] MEDS ORDERED: NS 500 ML IV ONE ×4 (08:07→21:50)
[2025-01-26] MEDS ORDERED: Lidocaine 2%-Epineph 1:100000 20 ML MDV ONE (08:09)
[2025-01-26] MEDS ORDERED: Midazolam HCl 1MG / ML 2ML Vial ONE ×2 (08:26→10:42)
[2025-01-26] MEDS ORDERED: FentaNYL Citrate 50 MCG/ML 2 ML Injection ONE ×3 (08:26→10:20)
[2025-01-26] MEDS ORDERED: Losartan Potassium 50 MG Tab PO SCH (09:00)
[2025-01-26] MEDS ORDERED: AmLODIPine Besylate 5 MG Tab PO SCH ×3 (09:00→21:00)
[2025-01-26] MEDS ORDERED: CeFAZolin Sodium 2,000 MG VIAL ONE (09:08)
[2025-01-26] MEDS ORDERED: NS 100 ML IV ONE (09:09)
--- NOTE | 2025-01-26 09:51 | NUR ---
ASSUMED CARE AT 0700 PT IS AWAKE WITH ZOLL ATTACHED AND PT BEING TRANSCUTANEOUSLY PACED FOR LONG PAUSES AROUND 7-9SEC; RATE SET AT 50 AND AT 40mA; DR US AT BEDSIDE EARLY AND TURNED TRANSCUTANEOUS PACER OFF AND PT RATE STAYED ABOVE 60; PT C/O MILD CHEST PRESSURE AND TIGHTNESS; SBP SINCE RATE IN 60'S IS SBP 170'S; DR US APPROVED FOR PT AM NORVAC. PT IS A/O X4 AND ABLE TO MAKE HER NEEDS KNOWN; SHE STATES THAT SHE FEELS "FUZZY" THIS AM. SPO2 >97% ON RA. AFEBRILE. NO C/O N/V, NPO. KRAMER IN PLACE AND DRAINING TO GRAVITY. PT LATASHA AT BEDSIDE WHEN DR US DISCUSSED PLAN FOR THE DAY. SEE SHIFT ASSESSMENT FOR FULL ASSESSMENT.
--- NOTE | 2025-01-26 09:57 | NUR ---
UPDATE PT TRANSPORTED TO NET PROGRAMMER FOR PACEMAKER PLACEMENT AT 0845. PT WALKED DOWN TO NET PROGRAMMER WAITING AREA.
[2025-01-26] MEDS ORDERED: HydrALAZINE HCl 20 MG / ML 1ML Vial ONE (10:06)
--- NOTE | 2025-01-26 12:25 | NUR ---
UPDATE PT RETURNED FROM FOOD SERVICES COORDINATOR AT 1145. SHE HAS A TR BAND TO THE RT RADIAL, AN ANGIOSEAL TO THE RT GROIN, AND AN OPSITE TO THE LT GROIN. SHE IS NSR WITH RATE 70'S. BP STABLE. SPO2 >98% ON RA. EMOTIONALLY FRAGILE RIGHT NOW WITH FAMILY IN THE ROOM BUT CAN BE CONSOLED.
[2025-01-26] MEDS ORDERED: OxyCODONE HCL 5 MG TAB PO PRN (14:40)
--- NOTE | 2025-01-26 16:51 | NUR ---
TR BAND REMOVAL PT ARRIVED FROM EXTRACTOR FILLER WITH RT TR BAND IN PLACE WITH 12ML OF AIR INFLATED. 1315 2ML REMOVED 1330 2ML REMOVED 1418 2ML REMOVED 1500 2ML REMOVED 1539 2ML REMOVED 1608 2ML REMOVED 1650 TR BAND REMOVED AND TEGADERM PLACED OVER SITE; NO SIGNS OF BLEEDING OR HEMATOMA DURING REMOVAL OF AIR. ARM BOARD IN PLACE. PT EDUCATED ON LIMITED USE OF RT WRIST.
[2025-01-26] MEDS ORDERED: CeFAZolin Sodium 2,000 MG in NS 100 ML IV SCH (17:00)
--- NOTE | 2025-01-26 18:35 | NUR ---
END OF SHIFT SUMMARY NO ACUTE EVENTS SINCE LAST NOTE. PT CONT TO BE A/O X4 AND ABLE TO MAKE HER NEEDS KNOWN; HAVING HER FAMILY AT BEDSIDE HELPFUL IN PROCESSING THE EMOTIONS OF THE DAY. PAIN REPORTED TO SITES RELATED TO FAN BALANCER EXPERIENCE TODAY, RT WRIST AND BILATERAL GROINS; PRN PAIN MEDICATION GIVEN AND HELPFUL; PT IS NOW SLEEPING BUT AROUSABLE. SPO2 >99% ON RA. AFEBRILE. HR 70'S SINCE RETURNING FROM FAN BALANCER. SBP 110-140'S. C/O NAUSEA X1 AND TREATED WITH PRN. KRAMER IN PLACE AND DRAINING TO GRAVITY. RT WRIST AND BILATERAL GROINS ALL SHOW NO SIGNS OF BLEEDING OR HEMATOMA. SEVERAL FAMILY MEMBERS VISITED TODAY. WILL REPORT TO PM RN WHEN LUPIS.
--- NOTE | 2025-01-26 21:22 | NUR ---
PROVIDER UPDATED DR. MAGAÑA CONTACTED REGARDING PT HYPOTENSION. ORDER FOR 500CC NS BOLUS RECIEVED. WILL REASSEESS.
--- NOTE | 2025-01-26 21:55 | NUR ---
PROVIDER UPDATED PT REMAINS HYPOTENSIVE W/ MAPS IN THE 50S AFTER BOLUS. ADDITIONAL 500ML NS BOLUS ORDERED. WILL REASSESS
--- NOTE | 2025-01-26 23:10 | NUR ---
PT UPDATE. PT REMAINS HYPOTENSIVE DESPITE 1250ML FLUID BOLUS. DR. GUERRERO UPDATED AND PT TO BE ICU STATUS, LEVOPHED ALSO ORDERED PER PROVIDER. SECOND IV PLACED.
--- NOTE | 2025-01-26 23:16 | NUR ---
PROVIDER UPDATED DR. GUERRERO CONTACTED, PT REMAINS HYPOTENSIVE W/ MAPS IN THE 50S AFTER TOTAL OF 500 (X2) BOLUS. ORDERS FOR AN ADDITIONAL 25O ML BOLUS RECIEVED. PLAN TO CONSIDER ICU ADMISSION AND PRESSORS IF HYPOTENSIION PERSISTS. WILL CONTINUE TO MONITOR.
[2025-01-27] VITALS (36 sets, daily range): BP systolic 79–188; BP diastolic 42–88
[2025-01-27 03:52] LABS: Hematocrit 30.2 % (33.0-51.0); Mean Corpuscular HGB 29.2 pg (26.0-34.0); Mean Corpuscular HGB Conc 33.1 g/dL (31.5-36.5); Mean Corpuscular Volume 88 fL (80-100); Mean Platelet Volume 11.3 fL (9.1-12.4); Platelet Count 132 K/mm3 (150-400); RDW Coefficient Variation 13.7 % (11.7-14.2); RDW Standard Deviation 44.2 fL (35.1-46.3); Red Blood Cell Count 3.43 M/mm3 (3.80-5.20); White Blood Cell Count 5.18 K/mm3 (4.00-11.30)
[2025-01-27 04:10] LABS: Bun/Creatinine Ratio 22.8 (12.0-20.0); Calcium, Blood 8.4 mg/dL (8.5-10.1); Creatinine, Blood 1.01 mg/dL (0.40-1.00); Potassium, Blood 4.3 mmol/L (3.5-5.5)
--- NOTE | 2025-01-27 05:36 | NUR ---
NOC SHIFT SUMMARY PT WAS UP FOR MOST OF NIGHT, HAD DIFFICULTY SLEEPING. PT ALERT AND ORIENTED, PLEASANT AND COOPERATIVE W/ CARE. PT HAD EPISODE OF HYPOTENSION OVERNIGHT AFTER TAKING BEDTIME MEDICATIONS- DISCUSSED W/ DR. GUERRERO. ALEA CARRASCO'D AT THIS TIME. HYPOTENSION- MAPS IN THE 50S PERSISTED DESPITE 1250 TOTAL NS BOLUS. LOW DOSE LEVOPHED INITIATED. ON STAND BY AT THIS TIME. PT LUNGS REMAIN CLEAR, PT ON ROOM AIR. HR 60-70S, NSR. PT MAKING CLEAR URINE- DRAINING TO GRAVITY VIA KRAMER CATH. NO BM THIS SHIFT. PT R. RADIAL SITE C/D/I- ARM BOARD IN PLACE. PT BILAT FEMORAL SITES ALSO UNCHANGED. NO OOZING OR HEMATOMA OBSERVED. INTERDRY MATERIAL TO PANUS. DRESSING APPLIED TO SKIN TEAR ON R. ARM. PT TURNED Q2HRS AND REQUESTED. PT TOLERATING PO INTAKE W/ GOOD APPETITE. PT USING CALL LIGHT APPROPRIATELY. PLAN OF CARE ONGOING.
--- NOTE | 2025-01-27 08:16 | NUR ---
START OF SHIFT THIS NURSE ASSUMED CARE AT APPROXIMATELY 0700. PT RESTING IN BED COMPLAINING OF GENERAL DISCOMFORT D/T HOSPITAL BED. ALL VENOUS AND ARTERIAL SITES APPEAR C/D/I AND WNL. PT N/V THIS AM AND PT STATED D/T PAIN MEDS ON EMAR. NO OTHER CONCERNS OR COMPLAINTS AT THIS TIME. WILL CONTINUE WITH THE PLAN OF CARE.
[2025-01-27] MEDS ORDERED: Prochlorperazine Edisylate 10 mg Vial IV PRN (09:35)
[2025-01-27] MEDS ORDERED: TiZANidine HCl 4 MG Tab PO PRN (09:35)
[2025-01-27] MEDS ORDERED: Pantoprazole Sodium 40 MG Injection IV SCH (10:00)
[2025-01-27 11:26] LABS: Hematocrit 30.1 % (33.0-51.0)
[2025-01-27] MEDS ORDERED: Losartan Potassium 50 MG Tab PO SCH (11:30)
[2025-01-27] MEDS ORDERED: AmLODIPine Besylate 5 MG Tab PO ONE (11:30)
[2025-01-27] MEDS ORDERED: FAMO10 PO (12:17)
[2025-01-27] MEDS ORDERED: LORA10ER PO (12:18)
[2025-01-27] MEDS ORDERED: MAGNESIUM OXIDE PO SCH (14:00)
[2025-01-27] MEDS ORDERED: CALCIUM CARBONATE PO SCH (14:00)
--- NOTE | 2025-01-27 15:09 | NUR ---
HAND OF REPORT THIS NURSE GAVE REPORT TO DANTE Santo RN. PT WAS ABLE TO STAND WITH 2X MAX ASSIST TO WHEELCHAIR FOR 2V CHEST XRAY BUT NEEDED RAJAN LIFT BACK TO BED. PT HAD AN EPISODE OF VENOUS BLEED FROM RIGHT FEM D/T N/V WITH HTN. COLORER MACHINE AND HOSPITALIST AWARE. PT HAD ANOTHER EPISODE OF BLEEDING AT 1530 SEVERAL HOURS AFTER, PROVIDERS ARE AWARE. COLORER MACHINE STATED NO H&H IS NEEDED AND THAT IT WILL EVENTUALLY STOP BLEEDING. DR MAGEN VENEGAS STATED JUST TRY TO MANAGE THE N/V AND TO KEEP THE SITE CLEAN WHICH IS DRESSED WITH A 2X2 GAUZE AND TEG. PT WAS HANDED OFF TO DANTE BUSTOS.
[2025-01-27] MEDS ORDERED: Losartan Potassium 50 MG Tab PO ONE (15:10)
--- NOTE | 2025-01-27 15:30 | NUR ---
[place] of Care: This RN recieved report from August BUSTOS, the patient has been downgraded to PCU status. This RN arrived to the room after patient C/O "feeling dizzy and nauseated." I was giving Compazine IV when the patient started vomiting. Pressure was applied to the right groin site because patient started to bleed earlier in the shift while vomiting. She started bleeding quite a bit out of that site saturating part of her gown and her ricks pad. Pressure was applied for approx [address] Cardenas notified, came to the bedside and observed the site, see new orders. At this time the patient was hypertensive with a SBP in the 180s, call was placed to Dr. Jaime prior to this RN entering the room. One time dose of Cozaar was ordered, patient is not able to take it at this time. Kirill insulation cupola charger attempted to call Dr. Jaime for possible IV blood pressure meds.
[2025-01-27] MEDS ORDERED: Ondansetron HCl 2 MG / ML 2ML Vial IV PRN (15:35)
[2025-01-27] MEDS ORDERED: ALPRAZolam 0.5 MG Tab PO PRN (15:45)
[2025-01-27] MEDS ORDERED: Metoprolol Succinate 25 MG TABCR PO SCH (16:00)
--- NOTE | 2025-01-27 16:00 | NUR ---
Update: Patient was given Zofran IV prior to being transferred to PCU 04 via bed. Shortly after arriving to PCU she fell asleep and blood pressure stablized. Groin site stable with gauze dressing. Call light in reach.
--- NOTE | 2025-01-27 17:20 | NUR ---
Summary: Patient has been alert and oriented x4, T/O the shift. She has only C/O her chronic back pain and her restless legs. HRR, she has been ST in the low 100s. She has been hypertensive intermittently T/O the shift, she did get some PRN hydralazine-most of her home medications have been reordered. LS CTA, Biox has been stable on RA. BT+, she vomited twice this shift, she states she has been having trouble keeping things down post-procedure.When she vomited her right groin site started bleeding and stopped with 10 min pressure, she currently has a gauze dressing with an opsite its CDI. No other acute changes this shift. Will report to oncoming RN.
[2025-01-27 20:39] LABS: Hematocrit 29.9 % (33.0-51.0)
[2025-01-27] MEDS ORDERED: Pregabalin 75 MG Cap PO SCH (21:00)
[2025-01-27] MEDS ORDERED: AmLODIPine Besylate 5 MG Tab PO SCH (21:00)
[2025-01-28 00:15] VITALS: BP 137/62
[2025-01-28 03:59] VITALS: BP 128/55
[2025-01-28 04:34] LABS: BASOPHILS ABSOLUTE AUTO 0.03 K/mm3 (0.00-0.23); BASOPHILS PERCENT AUTO 1 % (0-2); EOSINOPHILS ABSOLUTE AUTO 0.13 K/mm3 (0.00-0.68); EOSINOPHILS PERCENT AUTO 3 % (0-6); Hematocrit 27.8 % (33.0-51.0); Hemoglobin 9.1 g/dL (11.5-16.0); IMMATURE GRAN ABSOLUTE AUTO 0.01 K/mm3 (0.00-0.10); IMMATURE GRAN PERCENT AUTO 0 % (0-1); LYMPHOCYTES ABSOLUTE AUTO 0.97 K/mm3 (0.84-5.20); LYMPHOCYTES PERCENT AUTO 21 % (21-46); MONOCYTES ABSOLUTE AUTO 0.43 K/mm3 (0.16-1.47); MONOCYTES PERCENT AUTO 9 % (4-13); Mean Corpuscular HGB 29.4 pg (26.0-34.0); Mean Corpuscular HGB Conc 32.7 g/dL (31.5-36.5); Mean Corpuscular Volume 90 fL (80-100); NEUTROPHILS ABSOLUTE AUTO 2.99 K/mm3 (1.96-9.15); NEUTROPHILS PERCENT AUTO 66 % (41-73); Platelet Count 134 K/mm3 (150-400); RDW Coefficient Variation 14.1 % (11.7-14.2); RDW Standard Deviation 45.9 fL (35.1-46.3); White Blood Cell Count 4.56 K/mm3 (4.00-11.30)
[2025-01-28 04:54] LABS: Bun/Creatinine Ratio 15.2 (12.0-20.0); Calcium, Blood 8.4 mg/dL (8.5-10.1); Creatinine, Blood 0.92 mg/dL (0.40-1.00); Potassium, Blood 4.2 mmol/L (3.5-5.5)
--- NOTE | 2025-01-28 05:14 | NUR ---
PT'S GROIN SITES AND R RADIAL SITE C/D/I, NO BLEEDING OVERNIGHT OR DURING NOC SHIFT. SANDBAG APPLIED AT START OF SHIFT AND REMOVED AT APPROXIMATELY 2100, CLOSE MONITORING INITIATED. PT DOES NOT HAVE ANY NAUSEA DURING SHIFT OR EPISODES OF VOMITING. Q6 BLOOD SUGARS PER ORDER, INSULIN ADMINISTERED PER ORDER. PEDAL AND RADIAL PULSES PALPABLE, BLOOD PRESSURES STABLE, HEART RATE CONTROLLED IN SINUS RHYTHM. PT DENIES C/P, SOB, IVF INFUSING PER MD ORDER, KRAMER PATENT AND DRAINING WELL. NO CONCERNS AT THIS TIME. PT A&OX4, REMAINSON ROOM AIR.
[2025-01-28 07:45] VITALS: BP 110/77
[2025-01-28] MEDS ORDERED: Pregabalin 75 MG Cap PO SCH (09:00)
[2025-01-28] MEDS ORDERED: Losartan Potassium 50 MG Tab PO SCH (09:00)
[2025-01-28 09:15] VITALS: BP 97/65
--- NOTE | 2025-01-28 10:24 | NUR ---
ASSUMPTION OF CARE: PATIENT IS ALERT AND ORIENTED X 4 ABLE TO MAKE NEEDS KNOWN, PLEASANT AND COOPERATIVE WITH CARE. DENIES CHEST PAIN PRESSURE OR SOB. ALL CATH SITE C/D/I, NO SIGNS OF OBVIOUS BLEEDING. KRAMER IN PLACE DRAINING TO GRAVITY. IMPROVED MOBILITY, AWAITING ORDER TO DC KRAMER. PATIENT WORKED WITH PT AND WAS OOB FOR BREAKFAST VIA RECLINER. VSS AT THIS TIME AFEBRILE. ENDORSES NEED FOR BOWEL MEDS PROVIDER AWARE. PLAN OF CARE CONTINUES NO ACUTE CONCERNS THAT HAVE NOT BEEN ADDRESSED. OK TO STOP FLUIDS AT THIS TIME.
[2025-01-28] MEDS ORDERED: Polyethylene Glycol 3350 17 gm PO SCH (11:15)
[2025-01-28] MEDS ORDERED: Docusate Sodium 100 MG Cap PO SCH (11:15)
[2025-01-28] MEDS ORDERED: Insulin Glargine-Yfgn 100 Unit/mL 3 ML SYR SC SCH (12:10)
[2025-01-28] MEDS ORDERED: Insulin Regular 100 UNIT/ML 10ML Vial SC SCH (16:30)
--- NOTE | 2025-01-28 17:00 | NUR ---
Report called to Philippe on medical floor, patient will move to 339.
[2025-01-28 17:05] VITALS: BP 144/61
[2025-01-28 19:41] VITALS: BP 163/67
[2025-01-29 04:38] VITALS: BP 156/129
[2025-01-29 07:27] VITALS: BP 150/85
[2025-01-29] MEDS ORDERED: Acetaminophen650 M1 PO (12:53)
[2025-01-29] MEDS ORDERED: AMLO5 PO (12:53)
[2025-01-29] MEDS ORDERED: DOCU100 PO (12:54)
[2025-01-29] MEDS ORDERED: ALPR.5 PO (12:59)
--- NOTE | 2025-01-29 13:53 | NUR ---
PT DISCHARGED HOME WITH HOME HEALTH. SPOUSE AT BEDSIDE. DISCHARGE INSTRUCTIONS DISCUSSED WITH PT. NO QUESTIONS OR CONCERNS AT THIS TIME.
== END 2025-01-29 13:20 | disposition home or self-care (01) | DRG 229 ==
LOC: ER 13:15 → ICUE 15:30 → PCU 01-27 16:10 → MEDS 01-28 19:25
PROVIDERS: Emergency Medicine; Internal Medicine Cardiovascular Disease; Student in an Organized Health Care Education/Training Program; ADMIT Internal Medicine
PROC: 02HK3NZ Insertion of Intracardiac Pacemaker into Right Ventricle, Percutaneous Approach (ICD-10-PCS; principal; 2025-01-26)
PROC: B41F1ZZ Fluoroscopy of Right Lower Extremity Arteries using Low Osmolar Contrast (ICD-10-PCS; 2025-01-26)
PROC: B2111ZZ Fluoroscopy of Multiple Coronary Arteries using Low Osmolar Contrast (ICD-10-PCS; 2025-01-26)
PROC: 0JH607Z Insertion of Cardiac Resynchronization Pacemaker Pulse Generator into Chest Subcutaneous Tissue and Fascia, Open Approach (ICD-10-PCS; 2025-01-26)
PROC: 5A1223Z Performance of Cardiac Pacing, Continuous (ICD-10-PCS; 2025-01-26)
DX: I44.2 Atrioventricular block, complete (principal); E87.1 Hypo-osmolality and hyponatremia; N17.9 Acute kidney failure, unspecified; Z68.41 Body mass index [BMI] 40.0-44.9, adult; J44.9 Chronic obstructive pulmonary disease, unspecified; E11.42 Type 2 diabetes mellitus with diabetic polyneuropathy; I12.9 Hypertensive chronic kidney disease with stage 1 through stage 4 chronic kidney disease, or unspecified chronic kidney disease; N18.30 Chronic kidney disease, stage 3 unspecified; E03.9 Hypothyroidism, unspecified; R54 Age-related physical debility; D64.9 Anemia, unspecified; R42 Dizziness and giddiness; G25.81 Restless legs syndrome; E78.00 Pure hypercholesterolemia, unspecified; G47.33 Obstructive sleep apnea (adult) (pediatric); E66.01 Morbid (severe) obesity due to excess calories; Z96.651 Presence of right artificial knee joint; F17.200 Nicotine dependence, unspecified, uncomplicated; R00.1 Bradycardia, unspecified; E11.22 Type 2 diabetes mellitus with diabetic chronic kidney disease; R11.0 Nausea; G47.00 Insomnia, unspecified; M54.50 Low back pain, unspecified; Z90.710 Acquired absence of both cervix and uterus; Z90.721 Acquired absence of ovaries, unilateral; Z90.49 Acquired absence of other specified parts of digestive tract; Z79.4 Long term (current) use of insulin; Z79.84 Long term (current) use of oral hypoglycemic drugs
CPT/HCPCS: 33210; 33274; 36415; 36416; 51703; 70450; 71045; 71046; 72125; 76937; 80047; 80048; 80053; 82947; 83735; 84443; 84484; 85014; 85018; 85025; 85027; 90715; 93005; 93010; 93454; 94640; 94664; 94760; 94762; 97110; 97116; 97162; 97165; 97535; 99152; 99153; 99285-25; A9270; C1769; C1786; C1887; C1894; C8929; J0360; J0461; J0690; J0780; J1644; J1815; J2250; J2405; J2470; J3010; J7030; J7040; J7050; J7060; Q9957; Q9967

== ENCOUNTER → 2025-03-05 | Outpatient (CLI) | payer OTHER ==
[~2025-03-05] MED LIST changes: +ALPR.5 PO; +AMLO5 PO; +Acetaminophen650 M1 PO; +Amlodipine Bes2.5 MG PO; +DOCU100 PO; +FAMO10 PO; +HUMULIN R100 UNIT/1 SC; +KLOR-CON 1010 ME9 PO; +LORA10ER PO; +METFORMIN HCL500 M2 PO; +METO25ER PO; +OZEMPIC0.25 MG/02 SQ; +PREG150 PO; +PREG300 PO; +ROPI1 PO; +Ropinirole HCl1 MG PO; +TRELEGY ELLIPT1 EACH IH; +ZANAFLEX413 PO
[2025-03-06 12:21] LABS: Stool Occult Bld Immuno 1 Negative (NEGATIVE)
== END ==
LOC: LAB SHORT 14:22 → LAB 14:22
PROVIDERS: Student in an Organized Health Care Education/Training Program
DX: D64.9 Anemia, unspecified (principal)
CPT/HCPCS: 82274

== ENCOUNTER 2025-08-22 22:11 | Inpatient (IN) | payer OTHER ==
[~2025-08-22] VITALS: Ht 170.2 cm; Wt 118.0 kg
[~2025-08-22 22:11] MED LIST changes: -TRELEGY ELLIPT1 EACH BC; +TRELEGY ELLIPT1 EACH INH
[2025-08-22] MEDS ORDERED: ZANAFLEX413 PO (22:29)
[2025-08-22] MEDS ORDERED: Ondansetron HCl 2 MG / ML 2ML Vial IV ONE (22:35)
[2025-08-22] MEDS ORDERED: OZEMPIC0.25 MG/02 SC (22:38)
[2025-08-22 22:44] LABS: BASOPHILS ABSOLUTE AUTO 0.01 K/mm3 (0.00-0.23); BASOPHILS PERCENT AUTO 0 % (0-2); EOSINOPHILS ABSOLUTE AUTO 0.12 K/mm3 (0.00-0.68); EOSINOPHILS PERCENT AUTO 2 % (0-6); Hematocrit 32.6 % (33.0-51.0); Hemoglobin 10.9 g/dL (11.5-16.0); IMMATURE GRAN ABSOLUTE AUTO 0.02 K/mm3 (0.00-0.10); IMMATURE GRAN PERCENT AUTO 0 % (0-1); LYMPHOCYTES ABSOLUTE AUTO 1.28 K/mm3 (0.84-5.20); LYMPHOCYTES PERCENT AUTO 23 % (21-46); MONOCYTES ABSOLUTE AUTO 0.47 K/mm3 (0.16-1.47); MONOCYTES PERCENT AUTO 8 % (4-13); Mean Corpuscular HGB Conc 33.4 g/dL (31.5-36.5); Mean Corpuscular Volume 87 fL (80-100); NEUTROPHILS ABSOLUTE AUTO 3.74 K/mm3 (1.96-9.15); NEUTROPHILS PERCENT AUTO 66 % (41-73); NRBC ABSOLUTE 0.00 K/mm3 (0.00-0.02); NRBC Auto 0.0 /100 WBC (0.0-0.2); Platelet Count 153 K/mm3 (150-400); RDW Coefficient Variation 13.2 % (11.7-14.2); RDW Standard Deviation 41.6 fL (35.1-46.3)
[2025-08-22 23:05] LABS: Alanine Aminotransfer (ALT/SGP 24.0 U/L (12-78); Albumin, Blood 3.2 g/dL (3.4-5.0); Albumin/Globulin Ratio 1.0 (0.8-1.8); Anion Gap 10.0 mmol/L (3-11); Aspartate Aminotrans (AST/SGOT 19.0 U/L (12-37); Bilirubin, Total 0.5 mg/dL (0.1-1.0); Blood Urea Nitrogen 23.0 mg/dL (8-24); CO2, Blood 22.0 mmol/L (21-32); Calcium, Blood 8.7 mg/dL (8.5-10.1); Chloride, Blood 99.0 mmol/L (98-108); Creatinine, Blood 1.48 mg/dL (0.40-1.00); Globulin, Blood 3.2 g/dL (2.2-4.0); Glucose, Blood 291.0 mg/dL (70-99); Magnesium, Blood 2.0 mg/dL (1.6-2.4); Potassium, Blood 4.1 mmol/L (3.5-5.5); Sodium, Blood 127.0 mmol/L (136-145); Total Protein, Blood 6.4 g/dL (6.4-8.2)
[2025-08-22 23:51] LABS: Source, Urine Clean Catch
[2025-08-22 23:54] LABS: Bilirubin, Urine Neg (Neg); Glucose Qualitative, Urine Neg (Neg); Ketones, Urine Neg (Neg); Leukocyte Esterase, Urine Neg (Neg); Protein, Urine 1+ (Neg); Specific Gravity, Urine 1.010 (1.003-1.022); Urobilinogen, Urine NORM (Normal)
[2025-08-23 00:02] LABS: Color, Urine Yellow (P-Yellow)
[2025-08-23] MEDS ORDERED: Metoclopramide HCl 5MG / ML 2ML Vial IV PRN ×2 (02:40→07:15)
[2025-08-23] MEDS ORDERED: FLU VACC TS2025(65UP)/MF59C/PF 45 MCG/0.5 ML SYRINGE IM SCH (02:45)
[2025-08-23] MEDS ORDERED: HYDROcodone 10-APAP 325 TAB PO PRN (03:15)
[2025-08-23 04:00] VITALS: BP 134/55
[2025-08-23] MEDS ORDERED: Tiotropium Bromide 2.5 MCG/ACT MIST INHAL (10 ACT/4 GM) INH SCH (04:00)
[2025-08-23] MEDS ORDERED: Formoterol/Mometasone MDI 5/200 mcg 13 GM INH SCH (04:05)
[2025-08-23] MEDS ORDERED: Albuterol 2.5 MG/3 ML VIAL INH PRN (04:05)
[2025-08-23] MEDS ORDERED: ASCO500 PO (04:24)
[2025-08-23] MEDS ORDERED: FERSU300 PO (04:24)
[2025-08-23 04:44] LABS: BASOPHILS ABSOLUTE AUTO 0.01 K/mm3 (0.00-0.23); BASOPHILS PERCENT AUTO 0 % (0-2); EOSINOPHILS ABSOLUTE AUTO 0.11 K/mm3 (0.00-0.68); EOSINOPHILS PERCENT AUTO 2 % (0-6); Hematocrit 31.2 % (33.0-51.0); Hemoglobin 10.5 g/dL (11.5-16.0); IMMATURE GRAN ABSOLUTE AUTO 0.02 K/mm3 (0.00-0.10); IMMATURE GRAN PERCENT AUTO 0 % (0-1); LYMPHOCYTES ABSOLUTE AUTO 1.56 K/mm3 (0.84-5.20); LYMPHOCYTES PERCENT AUTO 24 % (21-46); MONOCYTES ABSOLUTE AUTO 0.57 K/mm3 (0.16-1.47); MONOCYTES PERCENT AUTO 9 % (4-13); Mean Corpuscular HGB Conc 33.7 g/dL (31.5-36.5); Mean Corpuscular Volume 87 fL (80-100); NEUTROPHILS ABSOLUTE AUTO 4.27 K/mm3 (1.96-9.15); NEUTROPHILS PERCENT AUTO 65 % (41-73); NRBC ABSOLUTE 0.00 K/mm3 (0.00-0.02); NRBC Auto 0.0 /100 WBC (0.0-0.2); Platelet Count 131 K/mm3 (150-400); RDW Coefficient Variation 13.1 % (11.7-14.2); RDW Standard Deviation 41.5 fL (35.1-46.3)
[2025-08-23 04:57] LABS: Alanine Aminotransfer (ALT/SGP 22.0 U/L (12-78); Albumin, Blood 3.0 g/dL (3.4-5.0); Albumin/Globulin Ratio 0.9 (0.8-1.8); Anion Gap 10.0 mmol/L (3-11); Aspartate Aminotrans (AST/SGOT 14.0 U/L (12-37); Bilirubin, Total 0.4 mg/dL (0.1-1.0); Blood Urea Nitrogen 23.0 mg/dL (8-24); CO2, Blood 22.0 mmol/L (21-32); Calcium, Blood 9.0 mg/dL (8.5-10.1); Chloride, Blood 100.0 mmol/L (98-108); Creatinine, Blood 1.41 mg/dL (0.40-1.00); Globulin, Blood 3.2 g/dL (2.2-4.0); Glucose, Blood 171.0 mg/dL (70-99); Potassium, Blood 4.0 mmol/L (3.5-5.5); Sodium, Blood 128.0 mmol/L (136-145); Total Protein, Blood 6.2 g/dL (6.4-8.2)
--- NOTE | 2025-08-23 05:00 | NUR ---
PT ARRIVED TO PCU 2 FROM ED. PT AXOX4 AND ABLE TO USE CALL LIGHT APPROPRIATELY. PT HAVING FREQUENT DIARRHEA AND ABD CRAMPING. PRN REGLAN ADMINISTERED PER NOV. PT BP HAS BEEN MAINTAINING MAP>65. LR INFUSING AT 150ML/HR. ALL OTHER VSS. BED IN LOWEST POSITION AND CALL LIGHT WITHIN REACH.
[2025-08-23 06:46] LABS: Campylobacter Sp Not Detected (NOT DETECT); Salmonella Sp Not Detected (NOT DETECT)
[2025-08-23 06:47] LABS: E. Coli O157 Not Detected (NOT DETECT); Enteroaggregative E. coli-EAEC Not Detected (NOT DETECT); Enteropathogenic E. coli-EPEC Not Detected (NOT DETECT); Enterotoxigenic E. coli-ETEC Not Detected (NOT DETECT); Shiga Toxin-prod E. coli-STEC Not Detected (NOT DETECT); Shigella/Enteroin E. coli-EIEC Not Detected (NOT DETECT); Vibrio Sp Not Detected (NOT DETECT)
[2025-08-23 07:29] VITALS: BP 120/63; BP 99/85
[2025-08-23] MEDS ORDERED: Insulin Human Lispro 100 Units/ML 3ML Syringe SC SCH (07:30)
[2025-08-23] MEDS ORDERED: Enoxaparin 40 MG/0.4 ML SYR SC SCH (09:00)
[2025-08-23 12:53] VITALS: BP 110/64
[2025-08-23 14:47] LABS: Anion Gap 10.0 mmol/L (3-11); Blood Urea Nitrogen 20.0 mg/dL (8-24); CO2, Blood 22.0 mmol/L (21-32); Calcium, Blood 8.6 mg/dL (8.5-10.1); Chloride, Blood 102.0 mmol/L (98-108); Creatinine, Blood 1.23 mg/dL (0.40-1.00); Glucose, Blood 176.0 mg/dL (70-99); Magnesium, Blood 1.9 mg/dL (1.6-2.4); Phosphorus, Blood 2.9 mg/dL (2.5-4.9); Potassium, Blood 3.9 mmol/L (3.5-5.5); Sodium, Blood 130.0 mmol/L (136-145)
[2025-08-23 15:59] VITALS: BP 147/56
--- NOTE | 2025-08-23 17:50 | NUR ---
SHIFT SUMMARY PT IS A&O X4, ABLE TO EXPRESS NEEDS, TRANSFERS IN ROOM WITH 1 PERSON ASSIST. O2 SATS >95% MAINTAINED ON ROOM AIR T/O SHIFT. SR 70s-90s W/ BBB, OCCASIONAL PACED BEATS. RECTAL TUBE PLACED THIS SHIFT D/T VERY FREQUENT WATERY DIARRHEA. DR. LEVIN WANTS TO HOLD IMMODIUM AT THIS TIME. KRAMER ALSO PLACED THIS SHIFT D/T URINARY RETENTION, DRAINING TO GRAVITY. PT STATED THAT SHE HAS A HX OF URINARY RETENTION THAT HAS PREVIOUSLY REQUIRED A KRAMER. DR. LEVIN WAS INFORMED THAT THE PT IS SEEN BY DR. SIMS WHO MANAGED URINARY RETENTION. DR. LEVIN STATED THAT SHE WILL TALK WITH HIM TOMORROW. PT COMPLAINED OF PERIODIC ABD PAIN EARLIER THIS SHIFT THAT HAS MOSTLY SUBSIDED SINCE PLACEMENT OF KRAMER AND ADMINISTRATION OF PAIN MEDICATION. DR. LEVIN ROUNDED ON PT THIS SHIFT, ORDER CHANGES IN EMAR INCLUDE CHANGE TO CLEAR LIQUID DIET. MAINTENANCE LR STARTED THIS EVENING AT 100 mLs/HR. FAMILY HAS BEEN AT BEDSIDE AND UPDATED ON CARE. SEE NOTES FOR UPDATES.
[2025-08-23 20:27] VITALS: BP 115/64
[2025-08-23] MEDS ORDERED: Insulin Glargine 100 Unit/ML 3 ML SYR SC SCH (21:00)
[2025-08-23 23:58] VITALS: BP 141/56
[2025-08-24 04:04] LABS: BASOPHILS ABSOLUTE AUTO 0.01 K/mm3 (0.00-0.23); BASOPHILS PERCENT AUTO 0 % (0-2); EOSINOPHILS ABSOLUTE AUTO 0.12 K/mm3 (0.00-0.68); EOSINOPHILS PERCENT AUTO 2 % (0-6); Hematocrit 30.5 % (33.0-51.0); Hemoglobin 10.5 g/dL (11.5-16.0); IMMATURE GRAN ABSOLUTE AUTO 0.01 K/mm3 (0.00-0.10); IMMATURE GRAN PERCENT AUTO 0 % (0-1); LYMPHOCYTES ABSOLUTE AUTO 1.22 K/mm3 (0.84-5.20); LYMPHOCYTES PERCENT AUTO 24 % (21-46); MONOCYTES ABSOLUTE AUTO 0.52 K/mm3 (0.16-1.47); MONOCYTES PERCENT AUTO 10 % (4-13); Mean Corpuscular HGB Conc 34.4 g/dL (31.5-36.5); Mean Corpuscular Volume 87 fL (80-100); NEUTROPHILS ABSOLUTE AUTO 3.16 K/mm3 (1.96-9.15); NEUTROPHILS PERCENT AUTO 63 % (41-73); NRBC ABSOLUTE 0.00 K/mm3 (0.00-0.02); NRBC Auto 0.0 /100 WBC (0.0-0.2); Platelet Count 115 K/mm3 (150-400); RDW Coefficient Variation 13.2 % (11.7-14.2); RDW Standard Deviation 41.7 fL (35.1-46.3)
[2025-08-24 04:14] VITALS: BP 119/59
[2025-08-24 04:23] LABS: Alanine Aminotransfer (ALT/SGP 20.0 U/L (12-78); Albumin, Blood 2.7 g/dL (3.4-5.0); Albumin/Globulin Ratio 0.9 (0.8-1.8); Anion Gap 10.0 mmol/L (3-11); Aspartate Aminotrans (AST/SGOT 13.0 U/L (12-37); Bilirubin, Total 0.6 mg/dL (0.1-1.0); Blood Urea Nitrogen 15.0 mg/dL (8-24); CO2, Blood 22.0 mmol/L (21-32); Calcium, Blood 8.3 mg/dL (8.5-10.1); Chloride, Blood 104.0 mmol/L (98-108); Creatinine, Blood 1.05 mg/dL (0.40-1.00); Globulin, Blood 3.1 g/dL (2.2-4.0); Glucose, Blood 194.0 mg/dL (70-99); Potassium, Blood 3.7 mmol/L (3.5-5.5); Sodium, Blood 132.0 mmol/L (136-145); Total Protein, Blood 5.8 g/dL (6.4-8.2)
[2025-08-24] MEDS ORDERED: Metoclopramide HCl 5MG / ML 2ML Vial IV PRN (07:35)
--- NOTE | 2025-08-24 07:35 | NUR ---
SHIFT SUMMARY: PT A&OX4 CALM AND COOPERATIVE. ABLE TO MAKE NEEDS KNOWN AND CALLS APPROPRIATELY. VSS ON RA. PT C/O BACK PAIN. MEDICATED PER EMAR AND APPLIED HEATING PAD. RECTAL TUBE AND KRAMER IN PLACE. DRAINING TO GRAVITY. NO OTHER ACUTE CHANGES DURING SHIFT. BED IS LOW AND LOCKED. CALL LIGHT WITHIN REACH. REPORT GIVEN TO DAY SHIFT NURSE.
[2025-08-24 08:15] VITALS: BP 123/56
[2025-08-24 11:12] VITALS: BP 131/119
[2025-08-24 11:57] VITALS: BP 135/62
--- NOTE | 2025-08-24 15:32 | NUR ---
RECTAL TUBE OUTPUT/ DC 200 mL TOTAL OUTPUT FROM RECTAL TUBE THIS SHIFT. RECTAL TUBE DCd PER ORDER, PT TOLERATED WELL. SEE NOTES FOR UPDATES.
[2025-08-24 15:43] VITALS: BP 123/76
--- NOTE | 2025-08-24 17:10 | NUR ---
PT TRANSFERED TO ROOM 326.
--- NOTE | 2025-08-24 18:05 | NUR ---
SHIFT SUMMARY / TRANSFER TO MEDICAL FLOOR PT A&O X 4, COOPERATIVE WITH CARE. 1 ASSIST TO TRANSFER IN ROOM. SATTING > 95% ON RA, NO C/O SOB. HR 70-80s, BPs STABLE. RECTAL TUBE DC'd PER ORDERS. KRAMER IN PLACE DRAINING TO GRAVITY. PT SEEN BY DR. LEVIN THIS SHIFT, MED NO TELE ORDERS PLACED, FLUIDS DC'D. REPORT GIVEN TO LAINE BUSTOS AT ABOUT 1755. PT TRANSFERRED TO MED FLOOR RM 326 AT ABOUT 1800. BELONGINGS IN PT'S DISPOSITION, FAMILY UPDATED. NO FURTHER NOTES FROM THIS RN.
[2025-08-24 19:27] VITALS: BP 155/83
[2025-08-25 03:54] VITALS: BP 100/46
[2025-08-25 05:32] LABS: BASOPHILS ABSOLUTE AUTO 0.01 K/mm3 (0.00-0.23); BASOPHILS PERCENT AUTO 0 % (0-2); EOSINOPHILS ABSOLUTE AUTO 0.13 K/mm3 (0.00-0.68); EOSINOPHILS PERCENT AUTO 3 % (0-6); Hematocrit 29.5 % (33.0-51.0); Hemoglobin 10.2 g/dL (11.5-16.0); IMMATURE GRAN ABSOLUTE AUTO 0.02 K/mm3 (0.00-0.10); IMMATURE GRAN PERCENT AUTO 0 % (0-1); LYMPHOCYTES ABSOLUTE AUTO 1.02 K/mm3 (0.84-5.20); LYMPHOCYTES PERCENT AUTO 21 % (21-46); MONOCYTES ABSOLUTE AUTO 0.31 K/mm3 (0.16-1.47); MONOCYTES PERCENT AUTO 6 % (4-13); Mean Corpuscular HGB Conc 34.6 g/dL (31.5-36.5); Mean Corpuscular Volume 87 fL (80-100); NEUTROPHILS ABSOLUTE AUTO 3.46 K/mm3 (1.96-9.15); NEUTROPHILS PERCENT AUTO 70 % (41-73); NRBC ABSOLUTE 0.00 K/mm3 (0.00-0.02); NRBC Auto 0.0 /100 WBC (0.0-0.2); Platelet Count 107 K/mm3 (150-400); RDW Coefficient Variation 13.2 % (11.7-14.2); RDW Standard Deviation 41.7 fL (35.1-46.3)
[2025-08-25 05:56] LABS: Anion Gap 10.0 mmol/L (3-11); Blood Urea Nitrogen 9.0 mg/dL (8-24); CO2, Blood 23.0 mmol/L (21-32); Calcium, Blood 8.4 mg/dL (8.5-10.1); Chloride, Blood 103.0 mmol/L (98-108); Creatinine, Blood 0.98 mg/dL (0.40-1.00); Glucose, Blood 253.0 mg/dL (70-99); Potassium, Blood 4.3 mmol/L (3.5-5.5); Sodium, Blood 132.0 mmol/L (136-145)
--- NOTE | 2025-08-25 06:23 | NUR ---
SHIFT SUMMARY PT WITHOUT BM THIS SHIFT. DENIES NAUSEA OR ABDOMINAL PAIN. TOLERATING LIQUID DIET. MEDICATED FOR BACK PAIN PER EMAR. KRAMER DRAINING YELLOW URINE. PT SLEPT INTERMITTENTLY DURING THE NIGHT.
[2025-08-25 07:45] VITALS: BP 128/58
[2025-08-25] MEDS ORDERED: AMLODIPINE BES2.5 MG PO (12:55)
[2025-08-25] MEDS ORDERED: HYDROCODONE-AC1 EA19 PO (12:55)
--- NOTE | 2025-08-25 16:49 | NUR ---
Upon receiving a request for spiritual care, I visited the patient. She tells me about her medical problems and her recent interest in reconnecting to her [employer] zaynab. I answer theological qiestions and give her a Bible in which I wrote some instructions on how to study the Bible (which was one of her questions). I provided theological listening, spiritual guaidance and prayer. The patient responded well and voiced appreciation for the visit. I will continue to remain available to the patient and family.
[2025-08-25 17:00] VITALS: BP 132/51
--- NOTE | 2025-08-25 17:46 | NUR ---
SUMMARY PT UPGRADED TO SOFT BITE SIZE DIET FOR DINNER. KRAMER WAS DC'D TODAY AND ORDERS PLACED FOR BLADDER SCAN Q6 AND STRAIGHT CATH FOR GREATER THAN 400 ML. PT WAS ABLE TO VOID 110 ML POST KRAMER REMOVAL. WILL BLADDER SCAN CLOSER TO 7PM AFTER PT IS DONE EATING. PHYSICAL THERAPY CANDICE ORDERED AND HE OK'S HER TO BE SBA IND TO [facility]SC. PT HAS HAD QUITE A BIT OF BELCHING ONGOING SINCE THIS MORNING. PT HAS BEEN PASSING GAS BUT ONLY ABOUT TWICE TODAY THAT SHE CAN REPORT. BOWEL SOUNDS ARE HYPOACTIVE. STILL NO BOWEL MOVEMENT SINCE RECTAL TUBE REMOVED 08/24. PT MEDICATED WITH NORCO 10/325 ONCE TODAY FOR CHRONIC BACK PAIN. PRN LOSE DOSE TYELNOL GIVEN THIS EVENING FOR HEADACHE AND DR LEVIN WAS NOTIFIED OF UNRELIEVED GAS/BLOATING AND ORDERED GAS-X TO START THIS EVENING PRN, ONCE WAS GIVEN PRIOR TO DINNER.
[2025-08-25 20:07] VITALS: BP 127/61
[2025-08-26 03:39] VITALS: BP 134/85
[2025-08-26 04:58] LABS: BASOPHILS ABSOLUTE AUTO 0.02 K/mm3 (0.00-0.23); BASOPHILS PERCENT AUTO 0 % (0-2); EOSINOPHILS ABSOLUTE AUTO 0.24 K/mm3 (0.00-0.68); EOSINOPHILS PERCENT AUTO 4 % (0-6); Hematocrit 29.6 % (33.0-51.0); Hemoglobin 10.3 g/dL (11.5-16.0); IMMATURE GRAN ABSOLUTE AUTO 0.02 K/mm3 (0.00-0.10); IMMATURE GRAN PERCENT AUTO 0 % (0-1); LYMPHOCYTES ABSOLUTE AUTO 1.12 K/mm3 (0.84-5.20); LYMPHOCYTES PERCENT AUTO 17 % (21-46); MONOCYTES ABSOLUTE AUTO 0.50 K/mm3 (0.16-1.47); MONOCYTES PERCENT AUTO 8 % (4-13); Mean Corpuscular HGB Conc 34.8 g/dL (31.5-36.5); Mean Corpuscular Volume 86 fL (80-100); NEUTROPHILS ABSOLUTE AUTO 4.78 K/mm3 (1.96-9.15); NEUTROPHILS PERCENT AUTO 72 % (41-73); NRBC ABSOLUTE 0.00 K/mm3 (0.00-0.02); NRBC Auto 0.0 /100 WBC (0.0-0.2); Platelet Count 109 K/mm3 (150-400); RDW Coefficient Variation 13.0 % (11.7-14.2); RDW Standard Deviation 40.3 fL (35.1-46.3)
--- NOTE | 2025-08-26 05:49 | NUR ---
SHIFT SUMMARY 74 YR F ADMITTED ON 08/23/25. DNR. PT HAS HAD SEVERAL INDEPENDANT VOIDS THIS SHIFT. BLADDER SCAN X 2 REVEALED 175ML, AND 200 ML POST VOID, RESPECTIVELY. AT APPROX 2200 PT BEGAN CRYING HYSTERICALLY SAYING THAT THERE WERE GHOSTS IN HER ROOM AND THEY WERE TELLING HER IT WAS HER TIME TO . SHE STATED THAT THEY GRABBED THE BLANKETS ON HER BED TRYING TO GET TO HER. THIS NURSE SAT WITH PT AND PRAYED WITH HER AND OFFERED CALMING REASSURANCE THAT SHE WAS SAFE. PT CALMED DOWN AND A RECLINER WAS BROUGHT INTO HER ROOM TO AVOID PUTTING HER BACK IN HER BED. PT STATED SHE WAS COMFORTABLE AND SHE WAS ABLE TO FALL ASLEEP AND SLEEP FOR SEVERAL HOURS. WHEN SHE WOKE SHE DID NOT APPEAR TO BE AFRAID ANYMORE AND REQUESTED TO GET BACK INTO BED. SHE HAS BEEN GETTING UP TO THE BEDSIDE COMMODE INDEPENDANTLY. SHE IS ABLE TO MAKE HER NEEDS KNOWN AND CALL FOR ASSISTANCE. BED IS IN LOW POSITION WITH CALL LIGHT IN REACH.
[2025-08-26 07:16] VITALS: BP 147/64
[2025-08-26] MEDS ORDERED: LOSA25 PO (12:48)
[2025-08-26 14:39] LABS: CALPROTECTIN,FECAL 121 ug/g (<=49)
--- NOTE | 2025-08-26 15:12 | NUR ---
DISCHARGE SUMMARY PT EDUCATED ON DISCHARGE PAPERWORK AND INSTRUCTIONS. TO FOLLOW UP WITH PCP WITHIN ONE WEEK. IV REMOVED. BELONGINGS GATHERED AND PT ESCORTED DOWN VIA WHEELCHAIR BY RN. PICKED PT UP. NO OTHER QUESTIONS OR CONCERNS PRIOR TO DC.
== END 2025-08-26 13:23 | disposition home or self-care (01) | DRG 392 ==
LOC: ER 22:11 → PCU 22:12 → MEDS 08-23 15:06 → ENPENDDIS 08-26 10:48 → MEDS 08-26 13:23
PROVIDERS: Internal Medicine; Student in an Organized Health Care Education/Training Program; ADMIT Student in an Organized Health Care Education/Training Program
PROC: 0D9P70Z Drainage of Rectum with Drainage Device, Via Natural or Artificial Opening (ICD-10-PCS; principal; 2025-08-23)
PROC: 0T9B70Z Drainage of Bladder with Drainage Device, Via Natural or Artificial Opening (ICD-10-PCS; 2025-08-23)
PROC: 3E02340 Introduction of Influenza Vaccine into Muscle, Percutaneous Approach (ICD-10-PCS; 2025-08-23)
DX: K52.9 Noninfective gastroenteritis and colitis, unspecified (principal); E87.1 Hypo-osmolality and hyponatremia; Z68.41 Body mass index [BMI] 40.0-44.9, adult; E87.20 Acidosis, unspecified; N17.9 Acute kidney failure, unspecified; J44.9 Chronic obstructive pulmonary disease, unspecified; E11.42 Type 2 diabetes mellitus with diabetic polyneuropathy; G25.81 Restless legs syndrome; E78.5 Hyperlipidemia, unspecified; G47.00 Insomnia, unspecified; M54.9 Dorsalgia, unspecified; E88.09 Other disorders of plasma-protein metabolism, not elsewhere classified; G89.29 Other chronic pain; E03.9 Hypothyroidism, unspecified; E66.01 Morbid (severe) obesity due to excess calories; E86.0 Dehydration; I44.7 Left bundle-branch block, unspecified; E11.22 Type 2 diabetes mellitus with diabetic chronic kidney disease; N18.9 Chronic kidney disease, unspecified; I12.9 Hypertensive chronic kidney disease with stage 1 through stage 4 chronic kidney disease, or unspecified chronic kidney disease; F41.9 Anxiety disorder, unspecified; R33.8 Other retention of urine; I95.9 Hypotension, unspecified; K74.60 Unspecified cirrhosis of liver; Z23 Encounter for immunization; Z98.890 Other specified postprocedural states; Z90.710 Acquired absence of both cervix and uterus; Z79.899 Other long term (current) drug therapy; Z79.84 Long term (current) use of oral hypoglycemic drugs; Z79.890 Hormone replacement therapy; Z79.4 Long term (current) use of insulin; Z79.51 Long term (current) use of inhaled steroids; Z90.722 Acquired absence of ovaries, bilateral; Z90.49 Acquired absence of other specified parts of digestive tract; Z95.0 Presence of cardiac pacemaker
CPT/HCPCS: 36415; 51702; 74177; 80048; 80053; 82947; 83605; 83690; 83735; 83993; 84100; 85025; 85651; 86140; 87507; 93005; 93010; 94640; 94664; 94760; 94762; 96361; 96372; 96375; 96375-59; 97116; 97161; 99285-25; A9270; G0378; J1650; J1815; J2405; J2765; J7120; Q9967

== ENCOUNTER → 2025-08-29 | Outpatient (CLI) | payer OTHER ==
[~2025-08-29] MED LIST changes: +AMLODIPINE BES2.5 MG PO; +ASCO500 PO; +FERSU300 PO; +HYDROCODONE-AC1 EA19 PO; +LOSA25 PO; +OZEMPIC0.25 MG/02 SC
[2025-08-29 20:31] LABS: Influenza A/2009-H1 Not Detected (NOT DETECT); SARS-Cov-2 (COVID-19), BioFire Not Detected (NOT DETECT)
== END ==
LOC: LAB SHORT 10:40 → LAB 10:40
PROVIDERS: Nurse Practitioner Family
DX: R05.9 Cough, unspecified (principal)
CPT/HCPCS: 0202U